=== PATIENT | male | born 1955 | race American Indian/Alaskan Native ===

== ENCOUNTER 2017-02-24 08:48 | Outpatient (CLI) | payer MEDICAID ==
[2017-02-24 09:42] LABS: Blood Urea Nitrogen 11 mg/dL (9-20)
[2017-02-24] MEDS ORDERED: NACL ONE (09:44)
--- NOTE | 2017-02-24 12:36 | Cat Scan Report ---
CTA abdomen and pelvis: Following IV administration of contrast rapid sequence transverse images are obtained from the lower chest to the ischium. Sagittal and coronal 2-D reformatted images as well as a 3-D MIP image are included. The visualized lung bases are clear. There is suspicion of coronary vascular calcification but this is compromised by the presence of IV contrast. The gallbladder has been removed. The abdominal organs are not otherwise remarkable. There is a 6 cm cyst involving the lateral right kidney but the retroperitoneal organs otherwise appear grossly normal. The unopacified bowel mesentery is generally normal. There are a large number of subcutaneous nodular densities consistent with vessels most likely representing collateralization. It is of note that the patient has an IVC filter. There are significant degenerative changes involving both SI joints with pseudoarticulation on the left between L5 and the sacrum. The abdominal aorta is normal in size and contour. The major vessels are patent with single renal arteries bilaterally. The left common iliac artery is diffusely dilated with a diameter of 2.7 cm. The right common iliac artery is 1.7 cm in diameter. The external and internal iliac arteries as well as the common femoral arteries are patent and unremarkable bilaterally. Impressions: 1. Left JOSEPH aneurysmal dilatation. 2. Venous collateralization with IVC filter. 3. Large right renal cyst. 4. Degenerative SI joints.
== END 2017-02-24 08:49 | disposition home or self-care (01) ==
LOC: CT 08:48
PROVIDERS: ATTEND Radiology Diagnostic Radiology
DX: I72.3 Aneurysm of iliac artery (principal); N28.1 Cyst of kidney, acquired; Z90.49 Acquired absence of other specified parts of digestive tract
CPT/HCPCS: 36415; 74174; 82565; 84520; Q9967

== ENCOUNTER 2017-03-16 06:59 | Day surgery (SDC) | payer MEDICAID ==
[~2017-03-16 06:59] MED LIST: ANCEF/STERILE WATER 2 GM/20 ML 2 GM/20 ML SYRINGE IV NR; NACL 0.9% 1000 ML 1,000 ML IV SCH
[2017-03-16 07:49] LABS: Basophils % (Auto) 1.2 % (0.0-1.8); Eosinophils % (Auto) 2.5 % (0.0-4.3); Hematocrit 39.2 % (35.5-45.6); Hemoglobin 12.8 gm/dl (11.8-15.2); Mean Corpuscular HGB Conc 33 % (32-34); Mean Corpuscular Hemoglobin 30 pg (28-32); Mean Corpuscular Volume 91 fl (84-94); Platelet Count 165 K/mm3 (140-440); Red Blood Count 4.32 M/mm3 (3.65-5.03); Red Cell Distribution Width 14.5 % (13.2-15.2); White Blood Count 5.2 K/mm3 (4.5-11.0)
[2017-03-16 08:07] LABS: Anion Gap 17 mmol/L; BUN/Creatinine Ratio 25.55; Blood Urea Nitrogen 23 mg/dL (9-20); Calcium 8.7 mg/dL (8.4-10.2); Carbon Dioxide 24 mmol/L (22-30); Chloride 106.1 mmol/L (98-107); Glucose 83 mg/dL (75-100); INR 1.08 (0.87-1.13); Sodium 143 mmol/L (137-145)
[2017-03-16 08:08] LABS: Partial Thromboplastin Time 37.7 Sec. (24.2-36.6)
[2017-03-16] MEDS ORDERED: HEPARIN/NS 5000 UNIT/500ML(CATH LAB) 1,000 ML IR ONE (08:35)
[2017-03-16] MEDS ORDERED: ANCEF/STERILE WATER 2 GM/20 ML 2 GM/20 ML SYRINGE IV ONE (08:36)
[2017-03-16] MEDS ORDERED: NACL 0.9% 500 ML 500 ML ONE (08:36)
[2017-03-16] MEDS: SUBLIMAZE ONE ×5 (09:07→09:59)
[2017-03-16] MEDS: VERSED ONE ×2 (09:07→09:26)
[2017-03-16] MEDS: XYLOCAINE 2% INFILTRATI ONE ×2 (09:13→09:16)
[2017-03-16] MEDS: HEPARIN 10,000 UNITS/10 ML ONE ×2 (09:20→10:10)
[2017-03-16] MEDS ORDERED: VERSED ONE (09:33)
[2017-03-16] MEDS: BENADRYL ONE ×2 (09:48→10:09)
[2017-03-16] MEDS ORDERED: ELIQUIS ONE (10:10)
--- NOTE | 2017-03-16 10:33 | Short Stay Summary ---
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 - History H&P: obtained from office - Allergies and Medications Current Medications: Allergies morphine Allergy (Severe, Verified 03/16/17 07:29) Itching ALL OVER Home Medications Medication Instructions Recorded Confirmed Last Taken Type Apixaban [Eliquis] 5 mg PO QDAY 03/16/17 03/16/17 03/15/17 History Pregabalin [Lyrica] 150 mg PO BID 03/16/17 03/16/17 03/15/17 History Tizanidine HCl [Zanaflex] 4 mg PO QDAY 03/16/17 03/16/17 03/15/17 History amLODIPine [Norvasc] 10 mg PO DAILY 03/16/17 03/16/17 03/15/17 History oxyCODONE /ACETAMINOPHEN [Percocet 1 tab PO PRN PRN 03/16/17 03/16/17 03/14/17 History 5/325] Active Medications Cefazolin Sodium (Ancef/Sterile Water 2 Gm/20 Ml) 2 gm in 20 mls @ 80 mls/hr IV PREOP NR PRN Reason: Protocol Stop: 03/16/17 23:59 Last Admin: 03/16/17 09:05 Dose: 20 mls Sodium Chloride (Nacl 0.9% 1000 Ml) 1,000 mls @ 42 mls/hr IV DIRECT SHAYLEE - Physical exam General appearance: no acute distress Lungs: Normal air movement Gastrointestinal: normal - Brief post op/procedure progress note Date of procedure: 03/16/17 Pre-op diagnosis: Ileocaval occlusion Post-op diagnosis: same Procedure: Attempted venous reconstruction of the IVC and iliac veins Anesthesia: local (w/ conscious sedation) Surgeon: ELSA MCLAUGHLIN Estimated blood loss: minimal Condition: stable - Hospital course Hospital course: Tolerated procedure without issue. Ready for discharge after 2 hrs. - Disposition Condition at discharge: Stable Disposition: DC-[id number] TO HOME OR SELFCARE Short Stay Discharge Plan Activity: advance as tolerated Weight Bearing Status: Weight Bear as Tolerated Diet: regular Wound: keep clean and dry
--- NOTE | 2017-03-16 10:44 | Operative Report ---
Operative Report Operative Report: EXAM: 1. Ultrasound-guided access of the right superficial femoral vein. 2. Ultrasound-guided access of the left superficial femoral vein. 3. Venography of the bilateral lower extremities 4. Selection of the IVC. DATE: 03/16/17 OBSTETRIC ANAESTHETIST: ELSA MCLAUGHLIN MD INDICATION: Bilateral lower extremity venous ulcers and symptoms of venous insufficiency with chronic ileocaval occlusion and compression requiring reconstruction. MEDICATIONS: Please see nursing report for full details. DEVICES: None. CONTRAST: Please see [employer] report for full details. PROCEDURE: The patient was prepped and draped in a sterile fashion in the supine position. The right common femoral vein and superficial femoral vein were evaluated with ultrasound and were patent. Under direct ultrasound guidance, the right superficial femoral vein was accessed with a 21-gauge micropuncture needle. 0.018 inch wire was passed into the right iliac vein. Needle was exchanged for transitional dilator. The left common femoral vein and superficial femoral vein evaluated with ultrasound and were patent. Under direct ultrasound guidance, the left superficial femoral vein was accessed with a 21-gauge micropuncture needle. 0.018 inch wire was passed into the left iliac vein. Needle was exchanged for transitional dilator. Both 0.018 inch wires were exchanged for 0.035 inch wires and both transitional dilators were exchanged for 5 [place] sheath. Digital subtraction angiography was performed through both sheaths demonstrating patency of both common femoral veins and proximal superficial femoral veins with extensive collaterals from the greater saphenous veins, and unnamed iliac collaterals draining flow from the lower extremities to the abdomen and suprarenal IVC. The infrarenal IVC, and common iliac and external iliac veins were chronically occluded and calcified from old thrombus. There is an occluded optese filter in the IVC. Fluoroscopy was used to evaluate the lungs in the chest and there is no evidence of a fractured filter fragment. Through the right sheath, 0.035 inch Glidewire advantage and multiple catheters including 0.035 inch Trailblazer, Omni flush, rim, and vertebral catheters in combination with V 18, Victory 30 g wires, and other wires were used in an attempt to cross the calcified venous system into the IVC above the occluded IVC filter. I was able to select the IVC, below the occluded IVC filter, but the large calcified central remnant of the clot prevented me from crossing the IVC filter. Instead my wires were pushed subintimally or in the retroperitoneum and I could not cross back into the IVC. I attempted to cross the left iliac vein, but could only cross the left external iliac vein, not the left common iliac vein. I then attempted to cross the left common iliac vein using my right common femoral access, hoping that the pathway from the left side may penetrate the IVC better than the pathway from the right side. Ultimately this was not possible to the calcified nature of the thrombus. Digital subtraction angiography was performed intermittently throughout the case demonstrating no evidence of extravasation or pseudoaneurysm. At the conclusion of the case, all wires, catheters, and she is removed and pressure was held until hemostasis was achieved. The patient was completely heparinized throughout the case, and was provided Eliquis at the conclusion of the case. No immediate postprocedure complication. FINDINGS: Please see procedure note above IMPRESSION: 1. Successful venography of the lower extremities and successful selection of the IVC below the thrombosed calcified IVC filter. 2. Inability to successfully cross the left common iliac venous calcified occlusion and the large calcified occlusion within the occluded IVC filter. Successful crossing of the right external and common iliac vein occlusion and lowest portion of the IVC, and left external iliac vein occlusion.
[2017-03-16] MEDS ORDERED: PERCOCET 5/325 PO ONE (11:30)
[2017-03-16 12:35] VITALS: BP 148/99
--- NOTE | 2017-03-17 08:16 | Vascular Lab Report ---
MISCELLANEOUS VESSEL IDENTIFICATION: COMMENTS ON THE SCAN: The bilateral common femoral veins were identified and under real-time ultrasound guidance was cannulated. IMPRESSION: Successful ultrasound guided vein cannulation.
== END 2017-03-16 12:45 | disposition home or self-care (01) ==
LOC: CATHLABREC 06:59
PROVIDERS: ATTEND Radiology Diagnostic Radiology
DX: I82.593 Chronic embolism and thrombosis of other specified deep vein of lower extremity, bilateral (principal); I87.1 Compression of vein; I87.013 Postthrombotic syndrome with ulcer of bilateral lower extremity; I10 Essential (primary) hypertension; Z88.5 Allergy status to narcotic agent; F17.210 Nicotine dependence, cigarettes, uncomplicated; Z98.84 Bariatric surgery status; Z79.82 Long term (current) use of aspirin; Z79.899 Other long term (current) drug therapy
CPT/HCPCS: 36010; 36415; 75822; 76937; 80048; 85025; 85610; 85730; C1725; C1769; C1887; J0690; J1200; J1644; J2250; J3010; J7040; Q9967